=== PATIENT | female | born 1985 | race Caucasian/White ===

== ENCOUNTER 2023-12-26 00:05 | Emergency (ER) | payer OTHER ==
[2023-12-26] MEDS: Ibuprofen 200 MG Tab PO ONE (01:00)
[2023-12-26] MEDS: Codeine/Promethazine 10-6.25 MG/5 ML Syrup 5 ML UD Cup PO ONE (01:01)
== END 2023-12-26 01:09 | disposition home or self-care (01) ==
LOC: VM.ED 00:05
DX: R07.81 Pleurodynia (principal); R05.1 Acute cough
CPT/HCPCS: 99283; A9270-GY